=== PATIENT | female | born 1975 | race Caucasian/White ===

== ENCOUNTER → 2018-02-23 09:41 | Outpatient (CLI) | payer BC, SELFPAY ==
[2018-02-23 11:17] LABS: Cancer Antigen 125 21 U/mL (0-35)
== END ==
PROVIDERS: Visit Provider Obstetrics & Gynecology
DX: Z80.41 Family history of malignant neoplasm of ovary (principal)
CPT/HCPCS: 36415; 86304

== ENCOUNTER → 2019-05-03 12:08 | Outpatient (CLI) | payer BC, SELFPAY ==
[2019-05-03 13:46] LABS: Cancer Antigen 125 9 U/mL (0-35)
== END ==
PROVIDERS: Family Provider Physician Assistant; PCP Physician Assistant; Visit Provider Obstetrics & Gynecology
DX: R14.0 Abdominal distension (gaseous) (principal)
CPT/HCPCS: 36415; 86304

== ENCOUNTER → 2020-10-24 08:24 | Outpatient (CLI) | payer BC, SELFPAY ==
[2020-10-24 11:01] LABS: Hematocrit 39.2 % (36-46); Hemoglobin 13.6 g/dL (12.0-16.0); Mean Corpuscular HGB Conc 34.7 % (30-36); Mean Corpuscular Hemoglobin 27.4 PG (26-34); Mean Corpuscular Volume 78.9 fL (80-100); Platelet Count 243 X10^3/uL (150-400); Red Blood Cell Count 4.97 X10^6/uL (4.0-5.2); Red Cell Distribution Width 13.4 % (11.6-14.8); White Blood Cell Count 8.3 X10^3/uL (4.5-11.0)
[2020-10-24 11:21] LABS: Alanine Aminotransferase 27 IU/L (<35); Albumin 4.4 g/dL (3.5-5.0); Albumin Globulin Ratio 1.4 (1.0-2.8); Alkaline Phosphatase 72 U/L (38-126); Aspartate Aminotransferase 23 IU/L (14-36); BUN Creatinine Ratio 23.5 (6-22); Bilirubin Total 0.5 mg/dL (0.2-1.3); Blood Urea Nitrogen 16 mg/dL (7-17); Calcium 9.8 mg/dL (8.4-10.2); Carbon Dioxide 36 mmol/L (22-32); Chloride 96 mmol/L (98-107); Cholesterol 260 mg/dL (140-199); Estimated Glomerular Filt Rate > 60.0 mL/min (>60); Globulin 3.1 g/dL (1.7-4.1); Glucose 100 mg/dL (70-100); HDL Cholesterol 53 mg/dL (40-60); HEMOLYSIS < 15 (0-50); LDL Cholesterol Calculated 173 mg/dL (<100); Potassium 3.3 mmol/L (3.4-5.1); Sodium 138 mmol/L (137-145); Total Protein 7.5 g/dL (6.3-8.2); Triglycerides 168 mg/dL (35-150)
[2020-10-24 11:48] LABS: TSH w/ Reflex to FT4 1.16 uIU/mL (0.47-4.68)
== END ==
LOC: LAB 08:24
PROVIDERS: Family Provider Physician Assistant; PCP Registered Nurse Diabetes Educator; Referring Provider Registered Nurse Diabetes Educator; Visit Provider Registered Nurse Diabetes Educator
DX: I10 Essential (primary) hypertension (principal); R74.8 Abnormal levels of other serum enzymes
CPT/HCPCS: 36415; 80053; 80061; 84443; 85027

== ENCOUNTER → 2020-12-09 08:33 | Outpatient (CLI) | payer BC, SELFPAY ==
--- NOTE | 2020-12-09 08:34 | DI.MG.S_ITS ---
BILATERAL DIGITAL SCREENING MAMMOGRAM 3D/2D WITH CAD: 12/09/2020 CLINICAL: Baseline exam. Routine screening. No prior exams were available for comparison. The tissue of both breasts is heterogeneously dense. This may lower the sensitivity of mammography. Current study was also evaluated with a Computer Aided Detection (CAD) system. No significant masses, calcifications, or other findings are seen in either breast. IMPRESSION: NEGATIVE There is no mammographic evidence of malignancy. A 1 year screening mammogram is recommended. This exam was interpreted at Station ID: [id number]. NOTE: For mammograms, a report in lay terms will be sent to the patient. Approximately 15% of breast malignancies will not be visualized mammographically. In the management of a palpable breast mass, a negative mammogram must not discourage biopsy of a clinically suspicious lesion. Electronically Signed By: Fidel Montgomery acr/viky:12/09/2020 12:39:21 letter sent: Normal Exam ACR BI-RADS Category 1: Negative [id number]
[2020-12-09 10:46] LABS: Blood Urea Nitrogen 12 mg/dL (7-17); Calcium 9.3 mg/dL (8.4-10.2); Carbon Dioxide 31 mmol/L (22-32); Chloride 95 mmol/L (98-107); Estimated Glomerular Filt Rate > 60.0 mL/min (>60); Glucose 110 mg/dL (70-100); HEMOLYSIS < 15 (0-50); Sodium 136 mmol/L (137-145)
== END ==
PROVIDERS: Family Provider Physician Assistant; PCP Registered Nurse Diabetes Educator; Referring Provider Registered Nurse Diabetes Educator; Visit Provider Registered Nurse Diabetes Educator
DX: Z12.31 Encounter for screening mammogram for malignant neoplasm of breast (principal); R74.8 Abnormal levels of other serum enzymes; I10 Essential (primary) hypertension
CPT/HCPCS: 36415; 77063; 77067; 80048

== ENCOUNTER → 2020-12-31 10:08 | Outpatient (CLI) | payer BC, SELFPAY ==
[2020-12-31 11:17] LABS: BUN Creatinine Ratio 31.6 (6-22); Blood Urea Nitrogen 18 mg/dL (7-17); Calcium 9.3 mg/dL (8.4-10.2); Carbon Dioxide 31 mmol/L (22-32); Chloride 98 mmol/L (98-107); Estimated Glomerular Filt Rate > 60.0 mL/min (>60); Glucose 94 mg/dL (70-100); HEMOLYSIS 20 (0-50); Potassium 3.4 mmol/L (3.4-5.1); Sodium 136 mmol/L (137-145)
== END ==
PROVIDERS: Family Provider Physician Assistant; PCP Registered Nurse Diabetes Educator; Referring Provider Registered Nurse Diabetes Educator; Visit Provider Registered Nurse Diabetes Educator
DX: E87.6 Hypokalemia (principal)
CPT/HCPCS: 36415; 80048

== ENCOUNTER → 2022-04-09 09:51 | Outpatient (CLI) | payer BC, SELFPAY ==
[2022-04-09 10:28] LABS: Hematocrit 38.3 % (36-46); Hemoglobin 12.8 g/dL (12.0-16.0); Mean Corpuscular HGB Conc 33.4 % (30-36); Mean Corpuscular Hemoglobin 26.6 PG (26-34); Mean Corpuscular Volume 79.6 fL (80-100); Platelet Count 233 X10^3/uL (150-400); Red Blood Cell Count 4.81 X10^6/uL (4.0-5.2); Red Cell Distribution Width 13.8 % (11.6-14.8); White Blood Cell Count 8.1 X10^3/uL (4.5-11.0)
[2022-04-09 10:55] LABS: Alanine Aminotransferase 38 IU/L (<35); Albumin 4.2 g/dL (3.5-5.0); Albumin Globulin Ratio 1.4 (1.0-2.8); Alkaline Phosphatase 72 U/L (38-126); Aspartate Aminotransferase 31 IU/L (14-36); BUN Creatinine Ratio 25.4 (6-22); Bilirubin Total 0.8 mg/dL (0.2-1.3); Blood Urea Nitrogen 15 mg/dL (7-17); Calcium 9.1 mg/dL (8.4-10.2); Carbon Dioxide 31 mmol/L (22-32); Chloride 99 mmol/L (98-107); Cholesterol 231 mg/dL (140-199); Estimated Glomerular Filt Rate > 60 mL/min (>60); Globulin 2.9 g/dL (1.7-4.1); Glucose 109 mg/dL (70-100); HDL Cholesterol 48 mg/dL (40-60); HEMOLYSIS < 15 (0-50); LDL Cholesterol Calculated 155 mg/dL (<100); Potassium 3.2 mmol/L (3.4-5.1); Sodium 137 mmol/L (137-145); Total Protein 7.1 g/dL (6.3-8.2); Triglycerides 142 mg/dL (35-150)
[2022-04-09 11:24] LABS: TSH w/ Reflex to FT4 2.19 uIU/mL (0.47-4.68)
== END ==
PROVIDERS: Family Provider Physician Assistant; PCP Registered Nurse Diabetes Educator; Referring Provider Registered Nurse Diabetes Educator; Visit Provider Registered Nurse Diabetes Educator
DX: D64.9 Anemia, unspecified (principal); E78.5 Hyperlipidemia, unspecified; I10 Essential (primary) hypertension; R73.01 Impaired fasting glucose; R74.8 Abnormal levels of other serum enzymes
CPT/HCPCS: 36415; 80053; 80061; 84443; 85027

== ENCOUNTER → 2022-11-23 11:28 | Outpatient (CLI) | payer OTHER, SELFPAY ==
[2022-11-23 12:18] LABS: Hematocrit 38.2 % (36-46); Mean Corpuscular HGB Conc 34.1 % (30-36); Mean Corpuscular Hemoglobin 26.5 PG (26-34); Mean Corpuscular Volume 77.6 fL (80-100); Platelet Count 245 X10^3/uL (150-400); Red Blood Cell Count 4.92 X10^6/uL (4.0-5.2); Red Cell Distribution Width 13.8 % (11.6-14.8); White Blood Cell Count 8.6 X10^3/uL (4.5-11.0)
[2022-11-23 13:02] LABS: Alanine Aminotransferase 34 IU/L (<35); Albumin 4.2 g/dL (3.5-5.0); Albumin Globulin Ratio 1.3 (1.0-2.8); Alkaline Phosphatase 80 U/L (38-126); Aspartate Aminotransferase 26 IU/L (14-36); Bilirubin Total 0.6 mg/dL (0.2-1.3); Blood Urea Nitrogen 13 mg/dL (7-17); Calcium 8.2 mg/dL (8.4-10.2); Carbon Dioxide 30 mmol/L (22-32); Chloride 99 mmol/L (98-107); Cholesterol 223 mg/dL (140-199); Estimated Glomerular Filt Rate > 60 mL/min (>60); Globulin 3.2 g/dL (1.7-4.1); Glucose 88 mg/dL (70-100); HDL Cholesterol 40 mg/dL (40-60); HEMOLYSIS < 15 (0-50); LDL Cholesterol Calculated 153 mg/dL (<100); Potassium 2.9 mmol/L (3.4-5.1); Sodium 138 mmol/L (137-145); Total Protein 7.4 g/dL (6.3-8.2); Triglycerides 150 mg/dL (35-150)
[2022-11-23 13:27] LABS: TSH w/ Reflex to FT4 1.73 uIU/mL (0.47-4.68)
== END ==
LOC: LAB 11:30
PROVIDERS: Family Provider Physician Assistant; PCP Registered Nurse Diabetes Educator; Referring Provider Registered Nurse Diabetes Educator; Visit Provider Registered Nurse Diabetes Educator
DX: E78.5 Hyperlipidemia, unspecified (principal); I10 Essential (primary) hypertension; E87.6 Hypokalemia; R73.01 Impaired fasting glucose; R74.8 Abnormal levels of other serum enzymes
CPT/HCPCS: 36415; 80053; 80061; 84443; 85027

== ENCOUNTER → 2023-05-13 15:41 | Outpatient (CLI) | payer OTHER, SELFPAY ==
--- NOTE | 2023-05-13 15:45 | DI.RAD.S_ITS ---
PROCEDURE: XR HAND RT MIN 3V INDICATIONS: bilateral hand and wrist pain TECHNIQUE: 3 views of the hand(s) acquired. COMPARISON: None. FINDINGS: Bones: No fractures or dislocations. Carpal bones are normally aligned. No suspicious bony lesions. There is radial subluxation at the 5th DIP joint. Soft tissues: No suspicious soft tissue calcifications. IMPRESSION: No acute osseous abnormality. Radial subluxation of the 5th DIP joint. Dictated by: Fara Durand M.D. on 05/13/2023 at 18:54 Approved by: Fara Durand M.D. on 05/13/2023 at 18:56
--- NOTE | 2023-05-13 15:45 | DI.RAD.S_ITS ---
PROCEDURE: XR HAND LT MIN 3V INDICATIONS: bilateral hand and wrist pain TECHNIQUE: 3 views of the hand(s) acquired. COMPARISON: None. FINDINGS: Bones: No fractures or dislocations. Carpal bones are normally aligned. No suspicious bony lesions. Arthritic changes noted involving the 5th DIP. Small periarticular erosions noted involving the 3rd PIP and 1st MCP Soft tissues: No suspicious soft tissue calcifications. IMPRESSION: Arthritic changes. Small periarticular erosions suggest and inflammatory component Approved by: Danish Alegria M.D. on 05/13/2023 at 18:26
--- NOTE | 2023-05-13 15:45 | DI.RAD.S_ITS ---
PROCEDURE: XR WRIST LT MIN 3V INDICATIONS: bilateral hand and wrist pain TECHNIQUE: 3 views of the wrist were acquired. COMPARISON: None. FINDINGS: Bones: No fractures or dislocations. No suspicious bony lesions. Scaphoid view: Intact Soft tissues: No suspicious soft tissue calcifications. IMPRESSION: No acute osseous abnormality. Dictated by: Fara Durand M.D. on 05/13/2023 at 18:53 Approved by: Fara Durand M.D. on 05/13/2023 at 18:54
--- NOTE | 2023-05-13 15:45 | DI.RAD.S_ITS ---
PROCEDURE: XR WRIST RT MIN 3V INDICATIONS: bilateral hand and wrist pain TECHNIQUE: 3 views of the wrist were acquired. COMPARISON: None. FINDINGS: Bones: No fractures or dislocations. No suspicious bony lesions. Soft tissues: No suspicious soft tissue calcifications. IMPRESSION: Normal right wrist radiographs Approved by: Danish Alegria M.D. on 05/13/2023 at 18:20
[2023-05-13 17:33] LABS: BUN Creatinine Ratio 20.8 (6-22); Blood Urea Nitrogen 11 mg/dL (7-17); Calcium 8.7 mg/dL (8.4-10.2); Carbon Dioxide 27 mmol/L (22-32); Chloride 102 mmol/L (98-107); Estimated Glomerular Filt Rate > 60 mL/min (>60); Glucose 87 mg/dL (70-100); HEMOLYSIS < 15 (0-50); Potassium 3.3 mmol/L (3.4-5.1); Sodium 139 mmol/L (137-145)
[2023-05-14 17:36] LABS: Deamidated Gliadin Ab IgA 5 units (0-19); Deamidated Gliadin Ab IgG 3 units (0-19); Immunoglobulin A,Qn 221 mg/dL (87-352); t-Transglutaminase IgA <2 U/mL (0-3)
[2023-05-17 05:36] LABS: Almond IgE 0.53 kU/L (Class I); Cashew Nut IgE <0.10 kU/L (Class 0); Codfish Allergy IgE < 0.10 kU/L (Class 0); Egg White IgE <0.10 kU/L (Class 0); Hazelnut IgE 0.38 kU/L (Class I); Milk IgE 0.11 kU/L (Class 0/I); Peanut IgE 1.38 kU/L (Class II); Salmon Allergy IgE < 0.10 kU/L (Class 0); Scallop Allergy IgE 0.29 kU/L (Class 0/I); Sesame seed Allergy IgE 0.98 kU/L (Class II); Shrimp IgE 0.59 kU/L (Class II); Soybean IgE 0.48 kU/L (Class I); Tuna Allergy IgE < 0.10 kU/L (Class 0); Walnut IgE 0.51 kU/L (Class I)
== END ==
PROVIDERS: Family Provider Physician Assistant; PCP Registered Nurse Diabetes Educator; Referring Provider Registered Nurse Diabetes Educator; Visit Provider Registered Nurse Diabetes Educator
DX: S63.246A Subluxation of distal interphalangeal joint of right little finger, initial encounter (principal); M25.531 Pain in right wrist; M25.532 Pain in left wrist; M79.641 Pain in right hand; M79.642 Pain in left hand; E83.51 Hypocalcemia; E87.6 Hypokalemia; R19.7 Diarrhea, unspecified
CPT/HCPCS: 36415; 73110; 73130; 80048; 82784; 83516; 86003

== ENCOUNTER 2023-05-31 08:47 | Day surgery (SDC) | payer OTHER, SELFPAY ==
--- NOTE | 2023-05-31 | PATH_ITS ---
[place] Accession Number: [id number] No. of containers..02 Tissue . 01 Material submitted: . PART A: colon - RIGHT COLON POLYP PART B: rectum - RECTAL POLYP . 01 Diagnosis: A. Right Colon, Polyp: Tubular adenoma. . B. Rectum, Polyp: Hyperplastic polyp. [facility] 06/07/2023 0958 Local . 01 Electronically signed: . Katia Carranza MD, Pathologist NPI- [id number] . 01 Gross description: . Part A: RIGHT COLON POLYP: Received in formalin is 1 fragment(s) of marie, soft tissue measuring 0.3 x 0.2 x 0.2 cm submitted entirely in 1 cassette(s) Part B: RECTAL POLYP: Received in formalin is 1 fragment(s) of marie, soft tissue measuring 0.3 x 0.2 x 0.1 cm submitted entirely in 1 cassette(s) /AA 06/02/2023 0349 Local . 01 Pathologist provided ICD-10: D12.6, K62.1 . 01 CPT . 550631, 300218 Specimen Comment: A courtesy copy of this report has been sent to [phone] Performed at: 01 [facility] [address] [place] [address] [address] [facility] [place], [place], [place] [id number] MD Felipe Lam MD Phone: [phone]
[2023-05-31 09:06] VITALS: BMI 38.7
--- NOTE | 2023-05-31 09:15 | P.HP_ITS ---
History of Present Illness History of Present Illness Date Patient Seen: 05/31/23 Time Patient Seen: 09:15 Chief complaint: Screening Colonoscopy Narrative: Colon cancer screening. Sister at age 62 with colorectal cancer. No symptoms. REPLACED BY [facility] Medical History Adjustment disorder with anxiety Allergic rhinitis Allergies CTS (carpal tunnel syndrome) Dyslipidemia Foot pain Hypertension Impaired fasting blood sugar Liver enzyme elevation Psoriasis (~1989) Sleep apnea Surgical History Anesthesia History of section (~11/26/13) Family History Father History of heart disease Hyperlipidemia Hypertension Stroke Mother Cancer Sister Mental health problem Alcoholic Grandfather History of heart disease Stroke Grandmother Cancer Social History household members: children Smoking Status: Former smoker additional social history: 10/07/2020 Patient lives with her and 2 children, ages 6 and 13 in [place], [place]. 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 Currently she is working from home and she likes her job pretty well. Patient reports that her was diagnosed with glioblastoma approximately 1 month ago. He has had the tumor removed and they are waiting to determine whether he will get chemotherapy or radiation therapy next. Patient understandably has experienced a lot of stress related to the recent diagnosis and treatment requirements, and feels quite emotional. Meds Home Medications and Allergies Home Medications Medication Instructions Recorded Confirmed Type amlodipine 5 mg tablet 5 mg PO DAILY #90 tabs 11/24/22 05/31/23 Rx chlorthalidone 25 mg tablet 25 mg PO DAILY #90 tabs 11/24/22 05/31/23 Rx ibuprofen 200 mg tablet (Advil) 200 mg PO Q6H PRN Pain (Scale 11/24/22 05/31/23 History Score 1-3) metoprolol succinate 25 mg 25 mg PO DAILY #90 tabs 11/24/22 05/31/23 Rx tablet,extended release 24 hr escitalopram oxalate 10 mg tablet 15 mg PO DAILY #135 tabs 05/13/23 05/31/23 Rx (Lexapro) potassium chloride 20 mEq 20 meq PO TID #270 tabs 05/16/23 05/31/23 Rx tablet,extended release magnesium 1 tab PO DAILY 05/31/23 05/31/23 History Allergies Allergy/AdvReac Type Severity Reaction Status Date / Time lisinopril Allergy Severe lip/facial Verified 05/31/23 09:03 swelling shellfish derived Allergy Intermediate hives and Verified 05/31/23 09:03 swelling UNK STEROID Allergy Severe Rash Uncoded 05/31/23 09:02 Review of Systems Review of Systems ROS: Yes All systems reviewed with the patient and are negative except as otherwise documented Exam Const General: cooperative and healthy appearing Nutritional Appearance: average body habitus HENMT Head: normocephalic and atraumatic Eyes Sclera: sclerae normal Neck Neck: trachea midline Resp Effort & Inspection: normal respiratory effort and able to speak in complete sentences Cardio Rate: regular rate Rhythm: regular rhythm GI Palpation: soft Skin General: turgor normal Neuro General: patient alert, patient awake and patient oriented x3 Psych Judgment: judgment good Assessment & Plan Assessment & Plan narrative: colon cancer screening with family history of colon cancer Colonoscopy with anesthesia Time Spent With Patient Time with patient: less than 30 minutes
[2023-05-31 09:23] VITALS: BP 164/81; PULSE 70; RESP 17; TEMP 36.3; O2SAT 98
[2023-05-31] MEDS: LACTATED RINGERS 1,000 ML 100 ML IV (09:25)
--- NOTE | 2023-05-31 10:24 | PM.OP.COLON ---
Operative Date/Time/Diagnoses Date of procedure: 05/31/23 Time of procedure: 10:25 Pre-op diagnosis: Colon cancer screening Post-op diagnosis: same Procedure & Clinicians Study performed: Colonoscopy Same procedure as scheduled: Yes Indications: Colon cancer screening Surgeon: Francisca Rushing Procedure Notes Procedure in detail: Preop diagnosis: Colon cancer screening Postop diagnosis: Same Operative procedure: Colonoscopy with anesthetic and cold forceps polypectomy Surgeon: Deborah Rushing MD Findings: Small right colon polyp and small rectal polyp each measuring 2 mm in diameter taken with cold forceps, no significant diverticulosis. Procedure: Patient placed in lateral position. Rectal exam performed showing normal tone no masses. Colonoscope inserted into the rectum and advanced to ileocecal valve with minimal difficulty. Insufflation extraction scope and the above findings. Retroflex was included in the procedure. Impression: 2 polyps, both 2 mm in size and sessile. One located in the proximal right colon, the other in the rectum. Plan: Repeat colonoscopy in 5 years. Findings: polyp(s) (Proximal right colon polyp 2 mm in size, rectal polyp 2 mm in size) Specimen(s): none sent (Right colon polyp and rectal polyp) Complications: none Post-procedure Recommendations: Colonoscopy in 5 years Follow up: weeks Disposition: PACU
[2023-05-31 10:30] VITALS: BP 100/61; PULSE 60; RESP 16; TEMP 36.6; O2SAT 98
[2023-05-31 10:35] VITALS: BP 101/60; PULSE 50; RESP 18; O2SAT 98
[2023-05-31 10:40] VITALS: BP 116/62; PULSE 64; RESP 16; O2SAT 98
[2023-05-31 10:48] VITALS: BP 122/78; PULSE 62; RESP 16; TEMP 36.2; O2SAT 98
== END 2023-05-31 11:05 | disposition home or self-care (01) ==
PROVIDERS: Family Provider Physician Assistant; PCP Registered Nurse Diabetes Educator; Referring Provider Surgery; Visit Provider Surgery
PROC: 0DJD8ZZ Inspection of Lower Intestinal Tract, Via Natural or Artificial Opening Endoscopic (ICD-10-PCS; CPT 45378; principal; 2023-05-31 08:45)
DX: Z12.11 Encounter for screening for malignant neoplasm of colon (principal); D12.2 Benign neoplasm of ascending colon; K62.1 Rectal polyp
CPT/HCPCS: 45380; J2704

== ENCOUNTER → 2023-07-22 13:18 | Outpatient (CLI) | payer OTHER, SELFPAY ==
[2023-07-22 14:26] LABS: Blood Urea Nitrogen 18 mg/dL (7-17); C-Reactive Protein Quant 1.4 mg/dL (<1.0); Calcium 9.7 mg/dL (8.4-10.2); Carbon Dioxide 26 mmol/L (22-32); Chloride 101 mmol/L (98-107); Estimated Glomerular Filt Rate > 60 mL/min (>60); Glucose 124 mg/dL (70-100); HEMOLYSIS < 15 (0-50); Potassium 3.7 mmol/L (3.4-5.1); Sodium 139 mmol/L (137-145)
[2023-07-22 14:34] LABS: Erythrocyte Sedimentation Rate 18 MM/HR (0-20)
[2023-07-22 14:36] LABS: Rheumatoid Factor < 8.6 IU/mL (<12.0)
[2023-07-23 21:36] LABS: CCP Antibodies IgG/IgA 1 units (0-19)
[2023-07-27 20:38] LABS: ANA Screen, IFA Negative (.)
== END ==
PROVIDERS: Family Provider Physician Assistant; PCP Registered Nurse Diabetes Educator; Referring Provider Registered Nurse Diabetes Educator; Visit Provider Registered Nurse Diabetes Educator
DX: M19.049 Primary osteoarthritis, unspecified hand (principal); M19.90 Unspecified osteoarthritis, unspecified site; E87.6 Hypokalemia
CPT/HCPCS: 36415; 80048; 85651; 86038; 86140; 86200; 86430

== ENCOUNTER → 2023-12-06 13:25 | Outpatient (CLI) | payer OTHER, SELFPAY ==
[2023-12-06 14:11] LABS: COVID-19 CEPHEID 4-PLEX PCR Negative (Negative); Influenza A - CEPHEID Flu A NEGATIVE (NEGATIVE); Influenza B - CEPHEID Flu B NEGATIVE (NEGATIVE); Respiratory Syncytial Virus Negative (Negative)
== END ==
PROVIDERS: Family Provider Physician Assistant; PCP Registered Nurse Diabetes Educator; Visit Provider Physician Assistant Surgical
DX: R05.9 Cough, unspecified (principal)
CPT/HCPCS: 0241U

== ENCOUNTER → 2024-05-27 09:17 | Outpatient (CLI) | payer OTHER, SELFPAY ==
[2024-05-27 10:21] LABS: Hematocrit 39.1 % (36-46); Hemoglobin 13.1 g/dL (12.0-16.0); Mean Corpuscular HGB Conc 33.6 % (30-36); Mean Corpuscular Volume 77.5 fL (80-100); Platelet Count 268 X10^3/uL (150-400); Red Blood Cell Count 5.04 X10^6/uL (4.0-5.2); Red Cell Distribution Width 14.4 % (11.6-14.8); White Blood Cell Count 7.1 X10^3/uL (4.5-11.0)
[2024-05-27 10:44] LABS: Alanine Aminotransferase 55 IU/L (<35); Albumin 4.4 g/dL (3.5-5.0); Albumin Globulin Ratio 1.3 (1.0-2.8); Alkaline Phosphatase 94 U/L (38-126); Aspartate Aminotransferase 37 IU/L (14-36); BUN Creatinine Ratio 23.4 (6-22); Blood Urea Nitrogen 15 mg/dL (7-17); Calcium 9.4 mg/dL (8.4-10.2); Carbon Dioxide 31 mmol/L (22-32); Chloride 99 mmol/L (98-107); Cholesterol 264 mg/dL (140-199); Estimated Glomerular Filt Rate > 60 mL/min (>60); Globulin 3.4 g/dL (1.7-4.1); Glucose 110 mg/dL (70-100); HDL Cholesterol 43 mg/dL (40-60); HEMOLYSIS < 15 (0-50); LDL Cholesterol Calculated 184 mg/dL (<100); Potassium 3.1 mmol/L (3.4-5.1); Sodium 138 mmol/L (137-145); Total Protein 7.8 g/dL (6.3-8.2); Triglycerides 186 mg/dL (35-150)
[2024-05-27 11:16] LABS: TSH w/ Reflex to FT4 1.34 uIU/mL (0.47-4.68)
== END ==
LOC: LAB 09:18
PROVIDERS: Family Provider Physician Assistant; PCP Registered Nurse Diabetes Educator; Referring Provider Registered Nurse Diabetes Educator; Visit Provider Registered Nurse Diabetes Educator
DX: Z51.81 Encounter for therapeutic drug level monitoring (principal); E78.5 Hyperlipidemia, unspecified; R74.8 Abnormal levels of other serum enzymes; D64.9 Anemia, unspecified
CPT/HCPCS: 36415; 80053; 80061; 84443; 85027

== ENCOUNTER 2024-08-09 08:50 | Emergency (ER) | payer OTHER, SELFPAY ==
[2024-08-09] VITALS (9 sets, daily range): BP systolic 159–187; BP diastolic 84–99; PULSE 75–88; RESP 15–22; TEMP 37; O2SAT 95–97; BMI 40.3
--- NOTE | 2024-08-09 09:26 | ED.ALLEREA ---
HPI - Allergic Reaction General Chief complaint: Allergic Reaction Stated complaint: hearing loss, head pressure,throat swelling Time Seen by Provider: 08/09/24 09:14 Source: patient Mode of arrival: Ambulatory History of Present Illness HPI narrative: Patient here for possible allergic reaction. 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 She did have skin testing done. She was instructed to reintroduce her medications 1 at a time. She is now allergic to NSAIDs, lisinopril, amlodipine, and likely now metoprolol. She took metoprolol this past Wednesday and started had some lymph node swelling. This morning she had some throat tightening. Was instructed to come here for evaluation. Patient in no distress. Exam is reassuring. She did have some ear drainage right ear a couple of days ago and has noticed some muffling sound to the ear. Examination does show right tragus tenderness and edema of the ear canal. No discharge. TM is clear. Related Data Home Medications Medication Instructions Recorded Confirmed ibuprofen 200 mg tablet (Advil) 200 mg PO Q6H PRN Pain (Scale 11/24/22 05/31/24 Score 1-3) Previous Rx's Medication Instructions Recorded escitalopram oxalate 10 mg tablet 15 mg (1.5 x 10 mg) PO DAILY #135 05/13/23 (Lexapro) tabs ipratropium bromide 21 mcg (0.03 2 spray intranasal BID #30 mL 12/06/23 %) nasal spray amlodipine 5 mg tablet 5 mg PO DAILY #90 tabs 03/10/24 chlorthalidone 25 mg tablet 25 mg PO DAILY #90 tabs 03/10/24 metoprolol succinate 25 mg 25 mg PO DAILY #7 tabs 08/07/24 tablet,extended release 24 hr epinephrine 0.3 mg/0.3 mL 0.3 mg (0.3 mL) IM Q5-15M PRN 08/09/24 injection, auto-injector (EpiPen anaphylaxis #2 ea 2-Martin) Allergies Allergy/AdvReac Type Severity Reaction Status Date / Time lisinopril Allergy Severe lip/facial Verified 05/31/24 09:48 swelling amlodipine Allergy Intermediate lip and Verified 08/07/24 10:27 eye swelling shellfish derived Allergy Intermediate hives and Verified 05/31/24 09:48 swelling NSAIDS (Non-Steroidal Allergy Unknown Unverified 08/07/24 10:27 Anti-Inflamma UNK STEROID Allergy Severe Rash Uncoded 05/31/24 09:48 Review of Systems Review of Systems Narrative: GENERAL: Negative chills, fatigue, malaise, fever, sweats. HEENT: Negative sinus pain, positive ear pain, sore throat, positive throat tightness RESPIRATORY: Negative dyspnea, cough CARDIOVASCULAR: Negative chest pain, palpitations GASTROINTESTINAL: Negative nausea, vomiting, abdominal pain : Negative dysuria, frequency, hematuria MUSCULOSKELETAL: Negative muscle or bony pain SKIN: Negative rash, skin lesions, negative rash NEUROLOGIC: Negative weakness, numbness ROS Unobtainable: All systems reviewed & are unremarkable except as noted in HPI and below Patient History Medical History Endometrial cancer, grade I Allergic rhinitis Impaired fasting blood sugar Dyslipidemia Adjustment disorder with anxiety Psoriasis (~1989) Sleep apnea Allergies Foot pain CTS (carpal tunnel syndrome) Liver enzyme elevation Hypertension Surgical History S/P wisdom tooth extraction Anesthesia History of section (~11/26/13) Family History Father History of heart disease Hyperlipidemia Hypertension Stroke Mother Cancer Sister Mental health problem Alcoholic Grandfather History of heart disease Stroke Grandmother Cancer Social History household members: children Smoking Status: Former smoker additional social history: 10/07/2020 Smoking Status: Former smoker alcohol intake frequency: a few times a month Substance Use Type: marijuana Exam Narrative Exam Narrative: GENERAL: in no distress, not toxic not dyspneic HEAD: Normocephalic. EYES: Pupils equal round ENT: Mucous membranes moist. Examination left ear. No tragus tenderness. No canal swelling. Examination right ear there is mild right tragus tenderness, there is edema of the canal without any discharge. TM is clear. No effusion or erythema or bulging NECK: Trachea midline. No pharyngeal erythema no lip or tongue swelling or elevation. No drooling. No stridor CARDIOVASCULAR: Regular rate and rhythm RESPIRATORY: Clear to auscultation. Breath sounds equal bilaterally. No wheezes, rales, or rhonchi. No respiratory distress. No stridor. Speaking full sentences. GASTROINTESTINAL: Abdomen soft, non-tender EXTREMITIES: No gross deformities. BACK: No flank tenderness. NEURO: AOx4. SKIN: Warm and dry PSYCH: Not anxious, is cooperative Initial Vital Signs Initial Vital Signs: Vital Signs Temperature 98.6 F 08/09/24 08:50 Pulse Rate 83 08/09/24 08:50 Respiratory Rate 20 08/09/24 08:50 Blood Pressure 187/95 H 08/09/24 08:50 Pulse Oximetry 96 08/09/24 08:50 Oxygen Delivery Method Room Air 08/09/24 08:50 Course Orders Ordered: ED Orders 08/09/24 09:20 Consult to MAJOR GIFTS OFFICER - Quality Control Representative Stat 08/09/24 09:23 CBC Auto Diff [Complete Blood Count AUTO DIFF] Stat CMP [Comprehensive Metabolic Panel] Stat Discontinued Medications Ciprofloxacin/Dexamethasone (Ciprofloxacin/Dexameth Otic Susp) 4 drops EAR-RIGHT NOW ONE Stop: 08/09/24 09:29 Last Admin: 08/09/24 09:40 Dose: 4 drop Documented By: TIMO Famotidine (Famotidine 20 Mg/2 Ml Vial) 20 mg IV NOW SRI Last Admin: 08/09/24 09:39 Dose: 20 mg Documented By: TIMO Vital Signs Vital signs: Vital Signs - 8 hr 08/09/24 08:50 08/09/24 09:03 08/09/24 09:30 Temperature 98.6 F Pulse Rate 83 88 79 Respiratory Rate 20 22 16 Blood Pressure 187/95 H Pulse Oximetry 96 97 95 Oxygen Delivery Method Room Air 08/09/24 09:31 08/09/24 09:55 08/09/24 09:55 Temperature Pulse Rate 75 78 Respiratory Rate 15 20 Blood Pressure 159/84 H Pulse Oximetry 97 97 Oxygen Delivery Method 08/09/24 10:29 08/09/24 10:29 08/09/24 10:30 Temperature Pulse Rate 79 86 Respiratory Rate Blood Pressure 166/99 H Pulse Oximetry 96 96 Oxygen Delivery Method 08/09/24 10:31 08/09/24 10:59 Temperature Pulse Rate 81 Respiratory Rate 16 Blood Pressure Pulse Oximetry 96 Oxygen Delivery Method MDM - Allergic Reaction Lab Data 08/09/24 09:23 08/09/24 09:23 Labs: Lab Results 08/09/24 Range/Units 09:23 WBC 8.5 (4.5-11.0) X10^3/uL RBC 5.21 H (4.0-5.2) X10^6/uL Hgb 13.6 (12.0-16.0) g/dL Hct 41.5 (36-46) % MCV 79.6 L (80-100) fL MCH 26.1 (26-34) PG MCHC 32.8 (30-36) % RDW 14.1 (11.6-14.8) % Plt Count 249 (150-400) X10^3/uL Neut % (Auto) 67.9 (50-75) % Lymph % (Auto) 22.9 L (25-40) % [place] % (Auto) 5.7 (3-14) % Eos % (Auto) 3.0 (2-4) % Baso % (Auto) 0.5 (0-2) % Neut # (Auto) 5800 (1636-6065) /uL Lymph # (Auto) 2000 (3743-0207) /uL [place] # (Auto) 500 (0-900) /uL Eos # (Auto) 300 (0-450) /uL Baso # (Auto) 0 (0-100) /uL Sodium 139 (137-145) mmol/L Potassium 3.8 (3.4-5.1) mmol/L Chloride 103 (98-107) mmol/L Carbon Dioxide 26 (22-32) mmol/L BUN 11 (7-17) mg/dL Creatinine 0.56 (0.52-1.04) mg/dL Estimated GFR > 60 (>60) mL/min BUN/Creatinine Ratio 19.6 (6-22) Glucose 133 H (70-100) mg/dL Calcium 9.1 (8.4-10.2) mg/dL Total Bilirubin 0.8 (0.2-1.3) mg/dL AST 47 H (14-36) IU/L ALT 44 H (<35) IU/L Alkaline Phosphatase 96 (38-126) U/L Total Protein 8.0 (6.3-8.2) g/dL Albumin 4.6 (3.5-5.0) g/dL Globulin 3.4 (1.7-4.1) g/dL Albumin/Globulin Ratio 1.4 (1.0-2.8) MDM Narrative Medical decision making narrative: Patient here for possible allergic reaction. 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 She did have skin testing done. She was instructed to reintroduce her medications 1 at a time. She is now allergic to NSAIDs, lisinopril, amlodipine, and likely now metoprolol. She took metoprolol this past Wednesday and started had some lymph node swelling. This morning she had some throat tightening. Was instructed to come here for evaluation. Patient in no distress. Exam is reassuring. She did have some ear drainage right ear a couple of days ago and has noticed some muffling sound to the ear. Examination does show right tragus tenderness and edema of the ear canal. No discharge. TM is clear. After history and exam Pepcid, Cipro otic drops [facility] Medical records reviewed: Office visit primary care May 2024 Differential considered: Includes but not limited to anaphylaxis angioedema allergic reaction drug allergy Lab Test results independently reviewed as above. Pertinent findings: WBC 8.5 hemoglobin 13.6 BUN 11 creatinine 0.56 Consultations: Paged primary care at 10:15 a.m.. Still no call back at 10:45 a.m. primary care provider, Adithya Gruber, called back at 11:30 a.m.. I did update her findings here and reassuring exam. She has appointment with her this afternoon. Agrees with treatment plan. She will find blood pressure medication appropriate for patient. Treatments: Pepcid Cipro otic Re-evaluations: 10:34 a.m.. Blood pressure improved 166/99. No blood pressure medications given. No new symptoms. Ear drops given. Awaiting call back from primary care for update Discussion: Appropriate for discharge home exam is reassuring. Airway intact. No hives or angioedema. Blood pressure improved without medication. Patient is allergic to prednisone and can not take it. Return precautions reviewed. She has appointment with her provider this afternoon. EpiPen prescription provided for patient. Return precautions reviewed. She desires discharge home Diagnosis: Otitis externa right ear, allergic reaction Discharge Plan Departure Patient Disposition: Home Clinical Impression: Otitis externa Qualifiers: Otitis externa type: unspecified type Chronicity: acute Laterality: right Qualified Code(s): H60.501 - Unspecified acute noninfective otitis externa, right ear Instructions: DI for Anaphylaxis, DI for Otitis Externa, DI for Adverse Drug Reaction -- Allergic Activity Restrictions/Additional Instructions: Please see your family doctor this afternoon as scheduled. Your laboratory studies are reassuring. Your blood pressure has improved here. However you will need your family doctor to review blood pressure medication that you will not be allergic to. Continue Cipro antibiotic 4 drops to the right ear twice a day for 7 days. Please keep your ears free of any water. Return if worse if any questions or concerns. Prescription for EpiPen has been provided for you to carry with you at all times. Use this only if you have trouble breathing or any tongue swelling or any oral swelling Prescriptions: New epinephrine [EpiPen 2-Martin] 0.3 mg/0.3 mL auto-injector 0.3 mg IM Q5-15M PRN (Reason: anaphylaxis) Qty: 2 0RF Rx Instructions: do not exceed 3 doses per episode No Action ipratropium bromide 21 mcg (0.03 %) spray,non-aerosol 2 spray intranasal BID Qty: 30 0RF Rx Instructions: administer into each nostril amlodipine 5 mg tablet 5 mg PO DAILY Qty: 90 3RF Hold Instructions: Angioedema chlorthalidone 25 mg tablet 25 mg PO DAILY Qty: 90 3RF metoprolol succinate 25 mg tablet extended release 24 hr 25 mg PO DAILY Qty: 7 0RF ibuprofen [Advil] 200 mg tablet 200 mg PO Q6H PRN (Reason: Pain (Scale Score 1-3)) Hold Instructions: NSAID allergy reported escitalopram oxalate [Lexapro] 10 mg tablet 15 mg PO DAILY Qty: 135 3RF Referrals: Adithya Gruber ARNP [Primary Care Provider] - Stand Alone Forms: Patient Portal/API/Survey
[2024-08-09 09:39] LABS: Add Manual Diff / Slide Review NO; Basophils Absolute Auto 0 /uL (0-100); Basophils Percent Auto 0.5 % (0-2); Eosinophils Absolute Auto 300 /uL (0-450); Hematocrit 41.5 % (36-46); Hemoglobin 13.6 g/dL (12.0-16.0); Lymphocytes Absolute Auto 2000 /uL (1100-4500); Lymphocytes Percent Auto 22.9 % (25-40); Mean Corpuscular HGB Conc 32.8 % (30-36); Mean Corpuscular Hemoglobin 26.1 PG (26-34); Mean Corpuscular Volume 79.6 fL (80-100); Monocytes Absolute Auto 500 /uL (0-900); Monocytes Percent Auto 5.7 % (3-14); Neutrophils Absolute Auto 5800 /uL (1500-7000); Neutrophils Percent Auto 67.9 % (50-75); Platelet Count 249 X10^3/uL (150-400); Red Blood Cell Count 5.21 X10^6/uL (4.0-5.2); Red Cell Distribution Width 14.1 % (11.6-14.8); White Blood Cell Count 8.5 X10^3/uL (4.5-11.0)
[2024-08-09] MEDS: FAMOTIDINE 20 MG/2 ML VIAL IV (09:39)
[2024-08-09] MEDS: CIPROFLOXACIN/DEXAMETH OTIC SUSP 4 DROPS EAR-RIGHT (09:40)
[2024-08-09 09:45] LABS: Alanine Aminotransferase 44 IU/L (<35); Albumin 4.6 g/dL (3.5-5.0); Albumin Globulin Ratio 1.4 (1.0-2.8); Alkaline Phosphatase 96 U/L (38-126); Aspartate Aminotransferase 47 IU/L (14-36); BUN Creatinine Ratio 19.6 (6-22); Bilirubin Total 0.8 mg/dL (0.2-1.3); Blood Urea Nitrogen 11 mg/dL (7-17); Calcium 9.1 mg/dL (8.4-10.2); Carbon Dioxide 26 mmol/L (22-32); Chloride 103 mmol/L (98-107); Estimated Glomerular Filt Rate > 60 mL/min (>60); Globulin 3.4 g/dL (1.7-4.1); Glucose 133 mg/dL (70-100); HEMOLYSIS 43 (0-50); Potassium 3.8 mmol/L (3.4-5.1); Sodium 139 mmol/L (137-145)
--- NOTE | 2024-08-09 11:12 | CM.SWNOTE ---
ED DIGITAL SALES EXECUTIVE Note: Reviewed chart and discussed pt with ED staff. DIGITAL SALES EXECUTIVE consulted to provide referrals and resources for grief counseling (pt discussed needing assistance with grief during Triage) DIGITAL SALES EXECUTIVE entered room to meet with patient, introduced self and role. DIGITAL SALES EXECUTIVE provided [facility] information of open grief groups via Zoom and in person. Pt inquired if her teenage sons could also use this resource, pt encouraged to reach out to DIGITAL SALES EXECUTIVE at [facility] for more appropriate resources. Pt medically cleared and discharged by ED staff to return home. DEMETRIUS Kenney
== END 2024-08-09 11:20 | disposition home or self-care (01) ==
PROVIDERS: Emergency Provider Emergency Medicine; Family Provider Physician Assistant; PCP Registered Nurse Diabetes Educator
DX: T88.6XXA Anaphylactic reaction due to adverse effect of correct drug or medicament properly administered, initial encounter (principal); H60.501 Unspecified acute noninfective otitis externa, right ear
CPT/HCPCS: 80053; 85025; 96374; 99283; 99284

== ENCOUNTER → 2024-08-28 07:23 | Outpatient (CLI) | payer OTHER, SELFPAY ==
[2024-08-28 08:53] LABS: Hemoglobin A1C% w Est Avg Glu 5.7 % (4.0-6.0)
[2024-08-28 09:01] LABS: Alanine Aminotransferase 35 IU/L (<35); Albumin 4.3 g/dL (3.5-5.0); Albumin Globulin Ratio 1.4 (1.0-2.8); Alkaline Phosphatase 98 U/L (38-126); Aspartate Aminotransferase 26 IU/L (14-36); BUN Creatinine Ratio 16.7 (6-22); Bilirubin Total 0.5 mg/dL (0.2-1.3); Blood Urea Nitrogen 10 mg/dL (7-17); Calcium 9.1 mg/dL (8.4-10.2); Carbon Dioxide 28 mmol/L (22-32); Chloride 106 mmol/L (98-107); Cholesterol 232 mg/dL (140-199); Estimated Glomerular Filt Rate > 60 mL/min (>60); Glucose 110 mg/dL (70-100); HDL Cholesterol 48 mg/dL (40-60); HEMOLYSIS < 15 (0-50); LDL Cholesterol Calculated 157 mg/dL (<100); Sodium 139 mmol/L (137-145); Total Protein 7.3 g/dL (6.3-8.2); Triglycerides 134 mg/dL (35-150)
== END ==
PROVIDERS: Family Provider Physician Assistant; PCP Registered Nurse Diabetes Educator; Referring Provider Registered Nurse Diabetes Educator; Visit Provider Registered Nurse Diabetes Educator
DX: R73.01 Impaired fasting glucose (principal); E78.5 Hyperlipidemia, unspecified; R74.8 Abnormal levels of other serum enzymes; E87.6 Hypokalemia; I10 Essential (primary) hypertension
CPT/HCPCS: 36415; 80053; 80061; 83036